=== PATIENT | female | born 1945 | race Caucasian/White ===

== ENCOUNTER → 2017-10-31 | Day surgery (SDC) | payer MEDICARE ==
[2017-10-29 14:55] LABS: BASOPHILS % 0.6 % (0.0-1.0); EOSINOPHILS % 0.2 % (0.0-6.0); HEMATOCRIT 42.9 % (34.2-44.1); HEMOGLOBIN 14.3 g/dL (12.0-16.0); LYMPHOCYTES # (AUTO) 1.5 (1.0-3.2); LYMPHOCYTES % 32.3 % (18.0-39.1); MEAN CORPUSCULAR HGB CONC 33.3 g/dL (31-35); MEAN CORPUSCULAR VOLUME 89.9 fL (81-99); MONOCYTES # (AUTO) 0.5 (0.2-0.8); MONOCYTES % 11.2 % (4.4-11.3); NEUTROPHILS # (AUTO) 2.6 (2.1-6.9); NEUTROPHILS % 55.1 % (38.7-80.0); PLATELET COUNT 265 x10e3/uL (140-360); RED BLOOD COUNT 4.77 x10e6/uL (3.6-5.1); RED CELL DISTRIBUTION WIDTH 13.1 % (11.7-14.4)
--- NOTE | 2017-10-29 15:04 | Diagnostic Imaging Report ---
PROCEDURE: Frontal and lateral views of the chest. COMPARISON: None. INDICATIONS: PRE OPERATIVE CHEST X-RAY FOR LITHOTRIPSY FINDINGS: Lines/tubes: None. Lungs: The lungs are well inflated and clear. There is no evidence of pneumonia or pulmonary edema. Pleura: There is no pleural effusion or pneumothorax. Heart and mediastinum: The heart and the mediastinum are normal. Bones: No acute bony abnormality. IMPRESSION: 1. No acute cardiopulmonary abnormalities. Brad Zhang M.D. Dictated by: Brad Zhang M.D. on 10/29/2017 at 15:12 Electronically approved by: Brad Zhang M.D. on 10/29/2017 at 15:12
[2017-10-29 15:14] LABS: ANION GAP 16.1 mmol/L (8-16); CALCIUM 9.2 mg/dL (8.4-10.2); CREATININE, SERUM 1.35 mg/dL (0.57-1.11); POTASSIUM 3.1 mmol/L (3.5-5.1)
[~2017-10-31] MED LIST: AMLODIPINE BESYL5 MG PO; CEFTRIAXONE SOD 1 GM VIAL ONE; EPHEDRINE SULFATE INJ 50 MG/10 ML SYR ONE; FENTANYL CITRATE/PF 100MCG/2 ML INJ ONE; FLUNISOLIDE25 ML; IOPAMIDOL 610MG/1ML 300 MG/ML VIAL IV ONE; LEVOTHYROXINE75 MCG PO; LIDOCAINE HCL 2% LOCAL INJ 5 ML SDV VIAL INJ ONE; LISINOPRIL-HCT1 EAC2 PO; MIDAZOLAM HCL 2 MG/2 ML VIAL ONE; ONDANSETRON HCL INJ 2 MG/ML VIAL ONE; PHENYLEPHRINE HCL 1% 10 MG/ML VIAL ONE; PRAVASTATIN SOD80 MG PO; PROPOFOL IV EMULSION 10 MG/ML 20 ML VIAL ONE; SEVOFLURANE INHAL SOLN 250 ML PEN BTL ONE
--- NOTE | 2017-10-31 14:08 | Operative Report ---
DATE OF PROCEDURE: October 31, 2017 PREOPERATIVE DIAGNOSES 1. Bilateral renal calculi. 2. Right-sided hydronephrosis. 3. Microscopic hematuria. POSTOPERATIVE DIAGNOSES 1. Bilateral renal calculi. 2. Right-sided hydronephrosis. 3. Microscopic hematuria. PROCEDURES 1. Cystourethroscopy with bilateral ureteral catheterization and bilateral retrograde pyelogram (entirely separate procedure for microscopic hematuria). 2. Cystourethroscopy with insertion of right indwelling ureteral stent (entirely separate procedure for right hydronephrosis). 3. Staged shock wave lithotripsy of left side (entirely separate procedure for left renal calculi). 4. Supervision of fluoroscopy. 5. Interpretation of retrograde pyelography. ANESTHESIA: General. ESTIMATED BLOOD LOSS: Minimal. COMPLICATIONS: None. INDICATIONS FOR PROCEDURE: Ms. 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 She and I had a long discussion in regard to the alternatives, the risks, and benefits including doing nothing, shockwave lithotripsy, ureteroscopy, percutaneous surgery, and stent placement. The patient voiced understanding of the options, alternatives, risks, and benefits. We will undergo staged treatment starting with the left side shock wave lithotripsy and placement of stent on the right side. She voiced understanding explicitly that the stent is a temporary indwelling device that it must be removed and failure to do so could lead to encrustation, infection, inflammation, atrophy, loss of kidney, and even . She elected to proceed. PROCEDURE IN DETAIL: After informed consent was obtained, the patient was taken to the operative suite, placed supine on the operating table, and underwent general anesthesia by the anesthesia service. She was placed in the dorsal lithotomy position and sterilely prepped and draped in a standard fashion for cystoscopy. A 22.5-Trinidadian cystoscope was inserted per urethra. It was noted to pass easily. There was no evidence of tumors, no stones. Both ureteral orifices were in normal anatomic position. Bilateral retrograde pyelograms were performed and revealed a very large partial staghorn on the right with upper pole hydronephrosis. On the left side, there was a lower pole moiety stone. Then, shockwave lithotripsy machine was brought into place. The stone was localized in the X, Y and Z planes on the left side and a total of 3000 shocks at a maximum power setting of 6 were delivered to the stone. On the right side, a ureteral stent was deployed, 6 x 26 cm with a coil in the upper pole and a coil in the bladder. The patient's bladder was drained. She was awakened from anesthesia and transported to the recovery room in excellent condition. SUPERVISION OF FLUOROSCOPY, INTERPRETATION OF RETROGRADE PYELOGRAPHY: I was present throughout the entire procedure and supervised the use of fluoroscopy as no radiologist was present. Bilateral retrograde pyelograms were performed and revealed normal ureters, partial staghorn on the right, upper pole hydronephrosis, left-sided lower pole stone, and stent in good position on the right side. Job#: [id number] SAK
== END | disposition home or self-care (01) ==
LOC: OR 10:07
PROVIDERS: ATTEND Urology
DX: N13.2 Hydronephrosis with renal and ureteral calculous obstruction (principal); N39.0 Urinary tract infection, site not specified; N28.1 Cyst of kidney, acquired; I10 Essential (primary) hypertension; R00.1 Bradycardia, unspecified; R05 Cough; Z01.810 Encounter for preprocedural cardiovascular examination; Z01.812 Encounter for preprocedural laboratory examination; Z01.818 Encounter for other preprocedural examination
CPT/HCPCS: 36415 ×2; 50590; 52332; 71046; 80048; 84132; 85025; 93005; J0696; J2001; J2250; J2370; J2405; Q9967

== ENCOUNTER → 2017-11-14 | Day surgery (SDC) | payer MEDICARE ==
[~2017-11-14] MED LIST changes: +BELLADONNA/OPIUM 60 MG SUPP PR ONE; +DEXAMETHASONE SOD PHOS INJ 4 MG/ML VIAL ONE; -EPHEDRINE SULFATE INJ 50 MG/10 ML SYR ONE; -PHENYLEPHRINE HCL 1% 10 MG/ML VIAL ONE
--- NOTE | 2017-11-14 06:09 | Diagnostic Imaging Report ---
ABDOMEN-1VIEW (KUB) Clinical history: Preoperative, right-sided kidney stone Technique: AP view abdomen Comparison: None Findings: There is a right double-J ureteral stent projecting in expected position. A 1.9 cm stone projects over the expected right lower calyx/renal pelvis. Left pelvic phlebolith. Partially imaged right hip arthroplasty. Nonobstructive bowel gas pattern. Impression: 1.9 cm stone projects over the expected right lower calyx/renal pelvis. Signed by: Dr Paris Conley MD on 11/14/2017 6:06 AM
--- NOTE | 2017-11-14 07:51 | Operative Report ---
DATE OF PROCEDURE: November 14, 2017 PREOPERATIVE DIAGNOSES 1. Right indwelling stent. 2. Right hydronephrosis. 3. Right renal calculus. POSTOPERATIVE DIAGNOSES 1. Right indwelling stent. 2. Right hydronephrosis. 3. Right renal calculus. PROCEDURES 1. Staged right-sided shockwave lithotripsy. 2. Cystourethroscopy with complicated removal of right indwelling stent (entirely separate procedure for complicated staged fashion for encrusted stent). 3. Cystourethroscopy with insertion of a right ureteral stent (entirely separate procedure for right hydronephrosis, staged shockwave lithotripsy). 4. Supervision of fluoroscopy. ANESTHESIA: General. ESTIMATED BLOOD LOSS: Minimal. COMPLICATIONS: None. INDICATIONS FOR PROCEDURE: Ms. Woodall is a 72-year-old female with massive bilateral stones. She now presents for stent exchange on the right as well as in a staged fashion. She voiced understanding of the options, alternatives, risks, and benefits and elected to proceed. PROCEDURE IN DETAIL: After informed consent was obtained, the patient was taken to the operative suite, placed supine on the table and underwent general anesthesia by the anesthesia service. Was placed in the dorsal lithotomy position. Sterilely prepped and draped for cystoscopy. A 22.5-Mongolian cystoscope was inserted per urethra, and noted to pass the urethra. There were no tumors. There was an encrusted right ureteral stent. A guidewire was inserted along side the stent. Photographic images were taken of the encrusted stent. Stent was removed intact. A 6 x 24 ureteral stent was deployed with the coil in the pelvis and a coil I the bladder. The patient's bladder was drained. Utilizing the shockwave lithotripsy machine, the stone was then localized in the X, Y and Z planes. A total of 3000 shocks at a maximum power setting of 6 were delivered to the stone. Good fragmentation was seen. The patient tolerated the procedure well and was transported to the recovery room in excellent condition with no untoward events noted. Job#: [id number] DANNA
== END | disposition home or self-care (01) ==
LOC: OR 05:10
PROVIDERS: ATTEND Urology
DX: N20.0 Calculus of kidney (principal); N13.30 Unspecified hydronephrosis; Z46.6 Encounter for fitting and adjustment of urinary device; I10 Essential (primary) hypertension; E03.9 Hypothyroidism, unspecified; K21.9 Gastro-esophageal reflux disease without esophagitis; Z87.891 Personal history of nicotine dependence
CPT/HCPCS: 50590; 52332; 74018; J0696; J1100; J2001; J2250; J2405

== ENCOUNTER → 2017-12-18 | Day surgery (SDC) | payer MEDICARE ==
[2017-12-17 15:10] LABS: BASOPHILS # (AUTO) 0.1 (0.0-0.1); EOSINOPHILS # (AUTO) 0.3 (0.0-0.4); EOSINOPHILS % 3.7 % (0.0-6.0); HEMOGLOBIN 12.6 g/dL (12.0-16.0); LYMPHOCYTES # (AUTO) 1.8 (1.0-3.2); LYMPHOCYTES % 21.8 % (18.0-39.1); MEAN CORPUSCULAR HEMOGLOBIN 30.4 pg (28-32); MEAN CORPUSCULAR HGB CONC 33.2 g/dL (31-35); MEAN CORPUSCULAR VOLUME 91.8 fL (81-99); MONOCYTES # (AUTO) 0.5 (0.2-0.8); MONOCYTES % 5.9 % (4.4-11.3); NEUTROPHILS # (AUTO) 5.6 (2.1-6.9); NEUTROPHILS % 66.9 % (38.7-80.0); PLATELET COUNT 379 x10e3/uL (140-360); RED BLOOD COUNT 4.14 x10e6/uL (3.6-5.1)
[2017-12-17 15:24] LABS: ANION GAP 13.5 mmol/L (8-16); BLOOD UREA NITROGEN 14 mg/dL (7-26); BUN/CREATININE RATIO 16 (6-25); CALCIUM 9.2 mg/dL (8.4-10.2); CARBON DIOXIDE 27 mmol/L (22-29); CHLORIDE 103 mmol/L (98-107); CREATININE, SERUM 0.87 mg/dL (0.57-1.11); EST GLOMERULAR FILTRATION RATE > 60 ML/MIN (60-); GLUCOSE 107 mg/dL (74-118); POTASSIUM 3.5 mmol/L (3.5-5.1); SODIUM 140 mmol/L (136-145)
[~2017-12-18] MED LIST changes: -BELLADONNA/OPIUM 60 MG SUPP PR ONE; -FENTANYL CITRATE/PF 100MCG/2 ML INJ ONE; -MIDAZOLAM HCL 2 MG/2 ML VIAL ONE
--- OUTSIDE RECORDS SUMMARY | 2017-12-18 05:13 | XMS REPORT ---
Author Author [facility] Address Unknown Phone Unavailable Care Team Providers Care Production Troubleshooter Name Role Phone MARTA SAGASTUME Unavailable Unavailable Problems This patient has no known problems. Allergies, Adverse Reactions, Alerts This patient has no known allergies or adverse reactions. Medications This patient has no known medications. Results Test Description Test Time Test Comments Text Results Atomic Results Result Comments ABDOMEN-1VIEW (KUB) [place] [address] Patient Name: LAUREL DAVALOS MR #: [id number] : 1945 Age/Sex: 72/F Req #: [id number] Adm Physician: Ordered by: MARTA SAGASTUME MD Report #: [id number] Location: OR Room/Bed: Procedure: [id number] DX/ABDOMEN-1VIEW (KUB) Exam Date: 11/14/17 Exam Time : 0540 REPORT STATUS: Signed ABDOMEN-1VIEW (KUB) Clinical history : Preoperative, right-sided kidney stone Technique: AP view abdomen Comparison: None Findings: There is a right double-J ureteral stent projecting in expected position. A 1.9 cm stone projects over the expected right lower calyx/renal pelvis. Left pelvic phlebolith. Partially imaged right hip arthroplasty. Nonobstructive bowel gas pattern. Impression: 1.9 cm stone projects over the expected right lower calyx/renal pelvis. Signed by: Dr Pablo Conley MD on 11/14/2017 6:06 AM Dictated By: PABLO CONLEY MD 5 Transcribed By: SOFIYA on 11/14/17605 COPY TO: MARTA SAGASTUME MD CHEST 2 VIEWS [place] [address] Patient Name: LAUREL DAVALOS MR #: [id number] : 1945 Age/Sex: 72/F Req #: [id number] Adm Physician: Ordered by: MARTA SAGASTUME MD Report #: [id number] Location: OR Room/Bed: Procedure: [id number] DX/CHEST 2 VIEWS Exam Date: Exam Time: REPORT STATUS: Signed PROCEDURE: Frontal and lateral views of the chest. COMPARISON: None. INDICATIONS: PRE OPERATIVE CHEST X-RAY FOR LITHOTRIPSY FINDINGS: Lines/tubes: None. Lungs: The lungs are well inflated and clear. There is no evidence of pneumonia or pulmonary edema. Pleura: There is no pleural effusion or pneumothorax. Heart and mediastinum: The heart and the mediastinum are normal. Bones: No acute bony abnormality. IMPRESSION: 1. No acute cardiopulmonary abnormalities. River Zhang M.D. Dictated by: River Zhang M.D. on 10/29/2017 at 15:12 Electronically approved by: River Zhang M.D. on 10/29/2017 at 15:12 Dictated By: RIVER ZHANG MD 11 Transcribed By: NATHAN on 10/29/171511 COPY TO: MARTA SAGASTUME MD
--- NOTE | 2017-12-18 09:47 | Operative Report ---
DATE OF PROCEDURE: December 18, 2017 PREOPERATIVE DIAGNOSES: 1. Right hydronephrosis. 2. Right-sided indwelling ureteral stent, encrusted. POSTOPERATIVE DIAGNOSES: 1. Right hydronephrosis. 2. Right-sided indwelling ureteral stent, encrusted. PROCEDURES: 1. Cystourethroscopy with complicated removal of right indwelling stent (entirely separate procedure complicated secondary to encrustation). 2. Right-sided ureteroscopy and dilation (entirely separate procedure for diagnosis of right hydronephrosis). 3. Supervision of fluoroscopy for both the stent removal and ureteroscopy dilation. 4. Interpretation of retrograde pyelography. ANESTHESIA: General. ESTIMATED BLOOD LOSS: Minimal. COMPLICATIONS: None. INDICATIONS FOR PROCEDURE: Ms. Woodall is a very pleasant 72-year-old female with a history of right stent placement for right hydronephrosis. She and I had a long discussion regarding the alternatives, the risks, and the benefits including doing nothing, stent removal, ureteroscopy, percutaneous surgery, open surgery. She voiced understanding of the options, the alternatives, the risks, and the benefits, and she elected to proceed. PROCEDURE IN DETAIL: After informed consent was obtained, the patient was taken to the operative suite. She was placed supine on operative table. She underwent general anesthesia by the anesthesia services. She was placed in dorsal lithotomy position and sterilely prepped and draped in standard fashion for cystoscopy. A 22.5-Turkmen cystoscope was inserted per urethra. A normal urethra was noted. Panendoscopy of the bladder revealed no tumors, no stones. Both ureteral orifices were in normal anatomic location and position. Right side had an encrusted stent extruding. A guidewire was inserted alongside the stent. The stent was removed intact with a moderate degree of difficulty. A flexible ureteroscope was advanced over the wire after rigid ureteroscopy and it was confirmed there were no ureteral stones. With the rigid ureteroscope in the mid ureter, there was soft matrix-like material, which was irrigated through the scope best seen on photographic image #3 and #2. The rigid ureteroscope was driven to level of the renal pelvis. There were no ureteral stones seen. A flexible ureteroscope was then introduced. The entire pelvicaliceal system was then mapped. There were no stones seen. There was no obstruction. The collecting system did drain promptly. At this time, the stent and scope were removed. Bladder was drained. The patient was awakened from anesthesia and transported to the recovery room in excellent condition. SUPERVISION OF FLUOROSCOPY AND INTERPRETATION OF RETROGRADE PYELOGRAPHY: I was present throughout the entire procedure and I supervised the use of fluoroscopy. There was no radiologist present at any time during this procedure. Attention was turned towards the right ureteral orifice, which was catheterized with ureteroscope. A retrograde pyelogram was performed with showing the ureteroscope in all the calices. There were clot, amorphous filling defects, which were irrigated and clear. IMPRESSION: Normal right retrograde pyelogram. Job#: [id number]
--- NOTE | 2017-12-18 11:42 | Diagnostic Imaging Report ---
PROCEDURE:X-RAY ABDOMEN - KUB COMPARISON:[facility], DX, ABDOMEN-1VIEW (KUB), 11/14/2017, 5:43. INDICATIONS:PRE OP FINDINGS: Nonobstructive bowel gas pattern. Stable right double-J internal ureteral stent in place. Previously visualized nonobstructing calculus projecting over the upper pigtail is not seen on the current exam. Faint 0.6-0.7 cm radiopaque density projecting over the inferior aspect of the right renal shadow, likely representing a nonobstructing calculus. 0.2-0.3 cm radiopaque density projecting in the mid aspect of the left renal shadow, which was not clearly seen on the prior exam. No radiopaque densities project over the expected course of ureters or bladder. Stable left pelvic phlebolith. Stable degenerative disc changes present in the lower lumbosacral spine. Stable right total hip replacement, as well as mild degenerative changes in the left hip joint. CONCLUSION: 1. Faint 0.7 cm radiopaque density projecting in the right renal shadow likely represents a nonobstructing calculus. 2. 0.3 cm radiopaque density projecting over the left renal shadow likely represents a nonobstructing calculus. Brad Zhang M.D. Dictated by: Brad Zhang M.D. on 12/18/2017 at 11:42 Electronically approved by: Brad Zhang M.D. on 12/18/2017 at 11:42
== END | disposition home or self-care (01) ==
LOC: OR 05:11
PROVIDERS: ATTEND Urology
DX: N13.30 Unspecified hydronephrosis (principal); Z46.6 Encounter for fitting and adjustment of urinary device; N20.0 Calculus of kidney; N39.0 Urinary tract infection, site not specified; N28.1 Cyst of kidney, acquired; R80.9 Proteinuria, unspecified; E03.9 Hypothyroidism, unspecified; I10 Essential (primary) hypertension; E78.5 Hyperlipidemia, unspecified; I71.4 Abdominal aortic aneurysm, without rupture; Z01.812 Encounter for preprocedural laboratory examination; Z68.31 Body mass index [BMI] 31.0-31.9, adult; Z96.641 Presence of right artificial hip joint; Z87.891 Personal history of nicotine dependence
CPT/HCPCS: 36415; 52352; 74018; 74420; 80048; 85025; J0696; J1100; J2001; J2405; Q9967